=== PATIENT | female | born 1970 | race Caucasian/White ===

== ENCOUNTER 2016-06-23 13:22 | Inpatient (IN) | payer OTHER ==
[~2016-06-23] VITALS: Ht 167.6 cm; Wt 99.7 kg
--- NOTE | 2016-06-23 17:13 | DIAGNOSTIC IMAGING REPORT ---
PROCEDURE: CT ABD/PELVIS WITH CONTRAST CLINICAL INDICATION: Right-sided pain, initial encounter TECHNIQUE: 98 ml of Isovue 300 were injected intravenously and axial images were obtained of the entire abdomen and pelvis with sagittal and coronal reformations. COMPARISON: None. FINDINGS: ABDOMEN: Mild left basilar atelectasis. Heart size is normal. Liver, gallbladder, pancreas, spleen, adrenal glands and kidneys are normal . Normal abdominal aorta. I PELVIS: Enlarged appendix (10 mm), with minor adjacent inflammatory changes. There is also a 1.7 cm inflammatory cystic mass lateral to the cecum with a wispy fluid collection extending from the appendix suggestive of a developing abscess. There are several fibroids, largest 4.8 cm. Adnexa and bladder are unremarkable. No free fluid. No suspicious osseous lesions. IMPRESSION: 1. Acute appendicitis. There is a 1.7 cm inflammatory mass lateral to the cecum with a wispy connection from the appendix suggestive of a developing abscess 2. Results discussed with Dr. Roberson All CT scans at this facility use dose modulation, iterative reconstruction, and/or weight-based dosing when appropriate to reduce radiation dose to as low as reasonably achievable.
--- NOTE | 2016-06-23 17:21 | ED NURSING NOTES ---
Clinical Report - Nurses [facility] [address] [place] [address] 06/23/2016 13:27 Patient: VICENTA LEWIS TRIAGE Triage time 13:50 Jun 23 2016. Acuity: LEVEL 3. Chief Complaint: ABDOMINAL PAIN. Alert. No acute distress. --13:59 Nuria Llanos R.N. 13:50 06/23/16. BP: 177/82. HR: 66. RR: 18. O2 saturation: 100%. Temp: 98.2 F. Pain level now 01/29. --13:59 Nuria Llanos R.N. Weight: 99.5 kg measured. Height/Length: 65 inches Estimated. BMI: 36.5. --13:50 Nuria Llanos R.N. Medications None. --13:54 Nuria Llanos R.N. Medication/allergy information source: the patient. --13:59 Nuria Llanos R.N. Allergies None. --13:54 Nuria Llanos R.N. History Primary physician (none). ( Pain on the Right Side, radiates around to the back. Comes and goes. 01/29. Pain since . Taking Ibuprofen PRN. Denies N/V/D.). The patient has had abdominal pain. No nausea, vomiting or fever. 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 PAST MEDICAL HX: No history of diabetes mellitus. Immunizations: seasonal influenza. Denies current . SURGERY HX: No history of previous surgery. SOCIAL HX: Never smoker. No alcohol use or drug use. No recent travel. No infectious disease exposure. FALL RISK ASSESSMENT: Fall risk assessment completed. No fall risk identified. NUTRITIONAL RISK ASSESSMENT: The nutritional risk assessment revealed no deficiencies. FUNCTIONAL ASSESSMENT: Functional assessment: no impairments noted. LEARNING NEEDS ASSESSMENT: The learning needs assessment revealed no barriers. SKIN INTEGRITY ASSESSMENT: Skin integrity risk assessment completed. No skin integrity risk identified. --13:59 Nuria Llanos R.N. ADDITIONAL SURGERIES: no known surgeries. Interventions ID band on patient. To room. --13:59 Nuria Llanos R.N. PHYSICAL ASSESSMENT Ambulatory to room. GENERAL / NEURO / PSYCH: Oriented X 4. Appears in no acute distress. SKIN: Skin is warm and dry. --14:00 Nuria Llanos R.N. NURSING PROGRESS NOTES ( attempting a urine sample.). --13:59 Nuria Llanos R.N. ( Ivorian speaking, son is interpreting.). --14:00 Nuria Llanos R.N. Clean catch urine collected with return of yellow-colored clear urine; sample sent to lab for urinalysis. Specimen labeled in the presence of the patient. --14:05 Nuria Llanos R.N. 15:27 06/23/2016 Site #1 started via IV in the right wrist with an 18g angiocath; one attempt. Blood drawn: rainbow set. --15:27 Roberto Alatorre R.N. 15:27 06/23/2016 Started bag #1 1000 mL IV Fluids IV NS (Saline); at 1000 mL/hr over 2 hour(s) via site #1. Allergies verified and confirmed 5 rights. IV patency established. IV site checked: no pain, redness, or swelling. IV flushed thoroughly pre- and post-medication administration. --15:27 Roberto Alatorre R.N. 15:38 06/23/2016 Dilaudid (HYDROmorphone HCl PF) IVP 0.5 mg given over 2 minute(s) via site #1. Allergies verified, confirmed 5 rights and sedative warning given to the patient. IV patency established. IV site checked: no pain, redness, or swelling. IV flushed thoroughly pre- and post-medication administration. IVP given by RN. --15:38 Roberto Alatorre R.N. 15:38 06/23/2016 Zofran (Ondansetron HCl) IVP 4 mg given over 2 minute(s) via site #1. Allergies verified and confirmed 5 rights. IV patency established. IV site checked: no pain, redness, or swelling. IV flushed thoroughly pre- and post-medication administration. IVP given by RN. --15:38 Landry, Roberto, R.N. 17:19 06/23/2016 IV Fluids IV NS Discontinued: bag #1 infused. Total amount infused: 1000 mL. IV patency established. IV site checked: no pain, redness, or swelling. IV flushed thoroughly. --17:19 Roberto Alatorre R.N. 17:22 06/23/16. BP: 135/78. HR: 78. RR: 16. O2 saturation: 100%. --17:24 Roberto Alatorre R.N. Reassessment after fluids administered. She is calm. ( Assisted patient to the restroom. Patient able to ambulate with an even and steady gait.). --17:24 Roberto Alatorre R.N. 17:35 06/23/2016 Started bag #1 1000 mL IV Fluids IV NS (Saline); over 2 hour(s) via site #1 via IV pump. Allergies verified and confirmed 5 rights. IV patency established. IV site checked: no pain, redness, or swelling. IV flushed thoroughly pre- and post-medication administration. --17:36 Roberto Alatorre R.N. 18:26 06/23/2016 Ertapenem IVP 1 gm given over 30 minute(s) via site #1. Allergies verified and confirmed 5 rights. IV patency established. IV site checked: no pain, redness, or swelling. IV flushed thoroughly pre- and post-medication administration. IVP given by RN. --18:26 Roberto Alatorre R.N. The patient is calm and resting quietly. Overall patient status is improved. GI / : Abdomen soft and nontender. Bowel sounds within normal limits. SKIN: Skin is warm and dry. Skin color within normal limits. --18:26 Roberto Alatorre R.N. 18:26 06/23/16. BP: 138/76. HR: 74. RR: 16. O2 saturation: 99%. Pain level now: 0/10. --18:26 Roberto Alatorre R.N. Patient transported by stretcher with nurse. (patient to be transported to surgery at 1836 PM). --18:37 Roberto Alatorre R.N. 18:36 06/23/16. BP: 138/76. HR: 73. RR: 16. O2 saturation: 100%. Temp: 98.2 F. Pain level now 08/01. --18:37 Roberto Alatorre R.N. DISPOSITION / DISCHARGE Condition at departure: improved. The goals identified in the patient's plan of care were met. No learning barriers present. Discharge instructions provided and reviewed with the patient. Reviewed medication(s) side effects, precautions, dosing and course information. Reviewed fever care instructions. Patient verbalized understanding. Written instructions provided in Macedonian. The patient was discharged home and accompanied by spouse. She left the Emergency Department ambulatory and via private vehicle. Spouse driving. FALL RISK ASSESSMENT: Fall risk assessment completed. No fall risk identified. --17:51 Roberto Alatorre R.N. Departure time: 1751 PM. --17:51 Roberto Alatorre R.N. Locked/Released at 06/26/2016 19:42 by Roberto Alatorre R.N.
--- NOTE | 2016-06-23 17:21 | ED CLINICAL REPORT ---
Clinical Report - Physicians/Mid Levels [facility] [address] [place] [address] 06/23/2016 13:27 Patient: VICENTA LEWIS Time Seen: 14:59. Arrived- By private vehicle. Historian- patient. HISTORY OF PRESENT ILLNESS Chief Complaint: ABDOMINAL PAIN. At its maximum, severity described as moderate. When seen in the E.D., severity described as moderate. Modifying factors- worsened by movement. It is described as "pain" and it is described as located in the right flank and the right upper quadrant. This started at 5 days ago; Pts adult son serves as kitchen supervisor. His technique is excellent. and is still present. It was gradual in onset and has been constant. No nausea or vomiting. Similar symptoms previously: ( 2 months ago -). Recent medical care: Not recently seen/assessed. REVIEW OF SYSTEMS Last normal menstrual period- Jun 02. No difficulty with urination, pain with urination, fever, headache or sore throat. No chest pain, difficulty breathing, cough, joint pain or skin rash. No chills or back pain. Last bowel movement: yesterday. All systems otherwise negative, except as recorded above. PAST HISTORY PCP: None Ops: None Hosp: None Illness: None. SOCIAL HISTORY Never smoker. ADDITIONAL NOTES The nursing notes have been reviewed. PHYSICAL EXAM Appearance: Alert. No acute distress. Eyes: Eyes normal inspection. ENT: Pharynx normal. CVS: Normal heart rate and rhythm. Heart sounds normal. Respiratory: No respiratory distress. Breath sounds normal. Abdomen: Moderate tenderness in the right lower quadrant. Guarding present in the right lower quadrant (trace). Bowel sounds normal. No mass. No rebound tenderness. (No inguinal hernias). Back: No CVA tenderness. Skin: Skin warm. Normal skin color. Extremities: Extremities exhibit normal ROM. No lower extremity edema. Neuro: No alteration in mental status. LABS, X-RAYS, AND EKG Abdominal CT: PROCEDURE: CT ABD/PELVIS WITH CONTRAST CLINICAL INDICATION: Right-sided pain, initial encounter TECHNIQUE: 98 ml of Isovue 300 were injected intravenously and axial images were obtained of the entire abdomen and pelvis with sagittal and coronal reformations. COMPARISON: None. FINDINGS: ABDOMEN: Mild left basilar atelectasis. Heart size is normal. Liver, gallbladder, pancreas, spleen, adrenal glands and kidneys are normal . Normal abdominal aorta. I PELVIS: Enlarged appendix (10 mm), with minor adjacent inflammatory changes. There is also a 1.7 cm inflammatory cystic mass lateral to the cecum with a wispy fluid collection extending from the appendix suggestive of a developing abscess. There are several fibroids, largest 4.8 cm. Adnexa and bladder are unremarkable. No free fluid. No suspicious osseous lesions. IMPRESSION: 1. Acute appendicitis. There is a 1.7 cm inflammatory mass lateral to the cecum with a wispy connection from the appendix suggestive of a developing abscess 2. Results discussed with Dr. Roberson All CT scans at this facility use dose modulation, iterative reconstruction, and/or weight-based dosing when appropriate to reduce radiation dose to as low as reasonably achievable. Electronically Final signed by:Giancarlo Booker MD 06/23/2016 5:13:09 PM. Laboratory Tests: UA-Culture if indicated: (SELIN: 06/23/2016 14:00) ( MsgRcvd 06/23/2016 14:21) Final results Test Result Flag Units (Reference) URINE COLOR LIGHT YELLOW URINE APPEARANCE CLEAR URINE GLUCOSE NEGATIVE (NEGATIVE) URINE BILIRUBIN NEGATIVE (NEGATIVE) URINE KETONE NEGATIVE (NEGATIVE) URINE SPECIFIC GRAVITY 1.010 (1.010-1.030) URINE PH 6.5 (5.0-8.0) URINE PROTEIN NEGATIVE (NEGATIVE) URINE UROBILINOGEN 0.2 EU/dL (0.2-1.0) URINE NITRITE NEGATIVE (NEGATIVE) URINE BLOOD NEGATIVE (NEGATIVE) URINE LEUK ESTERASE NEGATIVE (NEGATIVE) URINE RBC RARE rbc/hpf (0-1) URINE WBC 0-1 wbc/hpf (0-1) URINE EPITHELIAL CELLS 5-10 EPI/hpf (0-5) URINE BACTERIA TRACE (<1+) (NONE SEEN) URINE COMMENT CULT NOT INDICATED URINE CULTURES ARE SET-UP BASED ON THE FOLLOWING CRITERIA:POSITIVE NITRITEPOSITIVE LEUKOCYTE ESTERASEGREATER THAN 10 WHITE BLOOD CELLSMODERATE (2+) OR GREATER BACTERIA Urine: (SELIN: 06/23/2016 14:00) ( [facility] 06/23/2016 15:21) Final results Test Result Flag Units (Reference) URINE NEGATIVE Hgb/Hct: (SELIN: 06/23/2016 20:30) ( [facility] 06/23/2016 20:38) Final results Test Result Flag Units (Reference) HEMOGLOBIN 7.0 L gm/dL (12.0-16.0) HEMATOCRIT 24.4 L % (36.0-46.0) CBC w Diff: (SELIN: 06/23/2016 15:24) ( [facility] 06/23/2016 16:08) Final results Test Result Flag Units (Reference) WHITE BLOOD COUNT 9.0 K/uL (4.5-11.5) RED BLOOD COUNT 4.54 M/uL (4.00-5.20) HEMOGLOBIN 7.2 L gm/dL (12.0-16.0) HEMATOCRIT 25.1 L % (36.0-46.0) MEAN CELL VOLUME 55 L fL (80-100) MEAN CORPUSCULAR HGB 16 L pg (26-34) MEAN CORPUSCULAR HGB CONC 29 L g/dL (31-37) RED CELL DISTRIBUTION WIDTH 22.2 H % (11.6-14.8) PLATELET COUNT 422 H K/uL (150-400) NEUTROPHIL % 58.1 % (50-75) LYMPH % 28.5 % (25-40) MONO % 11.7 % (3-14) EOSINOPHIL % 1.1 % (0-4) BASOPHIL % 0.6 % (0-2) RBC MORPHOLOGY 3+ MICROCYTOSIS~~2+ ANISOCYTOSIS~~1+ HYPOCHROMASIA CMP: (SELIN: 06/23/2016 15:24) ( [facility] 06/23/2016 15:53) Final results Test Result Flag Units (Reference) GLUCOSE 72 mg/dL (70-110) BUN 9 mg/dL (7-18) CREATININE 0.5 L mg/dL (0.6-1.3) Estimated GFR >60 mL/min Estimated GFR- >60 mL/min Note: Persistent reduction over 3 months in eGFR<60 mL/min/1.73 m2 defines CKD. Patients with eGFR values>=60 mL/min/1.73 m2 may also have CKD if evidence ofpersistent proteinuria. Additional information may be foundat www.kidney.org. SODIUM 140 mmol/L (136-145) POTASSIUM 3.6 mmol/L (3.5-5.1) CHLORIDE 104 mmol/L (98-107) CARBON DIOXIDE 28 mmol/L (21-32) CALCIUM 8.0 L mg/dL (8.5-10.1) TOTAL PROTEIN 7.2 g/dL (6.4-8.2) ALBUMIN 3.2 L g/dL (3.3-5.0) BILIRUBIN, TOTAL 0.4 mg/dL (0.0-1.0) ALKALINE PHOSPHATASE 73 U/L (46-116) AST (SGOT) 20 U/L (15-37) ALT (SGPT) 29 U/L (12-78) LIPASE 103 U/L (73-393) Type & Cross: (SELIN: 06/23/2016 18:50) ( MsgRcvd 06/23/2016 19:23) IP Test Result Flag Units (Reference) PATIENT BLOOD TYPE O Positive Above is a corrected result. Previously reported on ( MsgRcvd 06/23/2016 19:11) as: PATIENT BLOOD TYPE O Positive ANTIBODY SCREEN NEGATIVE LEUKOREDUCED PACKED CELLS [id number] OP PC XM COMPATIBLE [id number] OP PC XM COMPATIBLE . PROGRESS AND PROCEDURES Course of Care: 16:21 06/23/16. Labs - anemia I spoke to Dr Neely. He came to the ED to examine the patient. He has written his usual admit orders. I have done the briefest portion of the Archiver's orders. Antibiotics are ordered at his request. CLINICAL IMPRESSION ACUTE ABDOMINAL PAIN ACUTE APPENDICITIS WITH ABSCESS ANEMIA. (Electronically signed by Hector Roberson MD 06/23/2016 23:39)
--- NOTE | 2016-06-23 17:21 | ED CLINICAL REPORT ---
Clinical Report - Physicians/Mid Levels [facility] [address] [place] [address] 06/23/2016 13:27 Patient: VICENTA LEWIS Time Seen: 14:59. Arrived- By private vehicle. Historian- patient. HISTORY OF PRESENT ILLNESS Chief Complaint: ABDOMINAL PAIN. At its maximum, severity described as moderate. When seen in the E.D., severity described as moderate. Modifying factors- worsened by movement. It is described as "pain" and it is described as located in the right flank and the right upper quadrant. This started at 5 days ago; Pts adult son serves as structural test engineer. His technique is excellent. and is still present. It was gradual in onset and has been constant. No nausea or vomiting. Similar symptoms previously: ( 2 months ago -). Recent medical care: Not recently seen/assessed. REVIEW OF SYSTEMS Last normal menstrual period- Jun 02. No difficulty with urination, pain with urination, fever, headache or sore throat. No chest pain, difficulty breathing, cough, joint pain or skin rash. No chills or back pain. Last bowel movement: yesterday. All systems otherwise negative, except as recorded above. PAST HISTORY PCP: None Ops: None Hosp: None Illness: None. SOCIAL HISTORY Never smoker. ADDITIONAL NOTES The nursing notes have been reviewed. PHYSICAL EXAM Appearance: Alert. No acute distress. Eyes: Eyes normal inspection. ENT: Pharynx normal. CVS: Normal heart rate and rhythm. Heart sounds normal. Respiratory: No respiratory distress. Breath sounds normal. Abdomen: Moderate tenderness in the right lower quadrant. Guarding present in the right lower quadrant (trace). Bowel sounds normal. No mass. No rebound tenderness. (No inguinal hernias). Back: No CVA tenderness. Skin: Skin warm. Normal skin color. Extremities: Extremities exhibit normal ROM. No lower extremity edema. Neuro: No alteration in mental status. LABS, X-RAYS, AND EKG Abdominal CT: PROCEDURE: CT ABD/PELVIS WITH CONTRAST CLINICAL INDICATION: Right-sided pain, initial encounter TECHNIQUE: 98 ml of Isovue 300 were injected intravenously and axial images were obtained of the entire abdomen and pelvis with sagittal and coronal reformations. COMPARISON: None. FINDINGS: ABDOMEN: Mild left basilar atelectasis. Heart size is normal. Liver, gallbladder, pancreas, spleen, adrenal glands and kidneys are normal . Normal abdominal aorta. I PELVIS: Enlarged appendix (10 mm), with minor adjacent inflammatory changes. There is also a 1.7 cm inflammatory cystic mass lateral to the cecum with a wispy fluid collection extending from the appendix suggestive of a developing abscess. There are several fibroids, largest 4.8 cm. Adnexa and bladder are unremarkable. No free fluid. No suspicious osseous lesions. IMPRESSION: 1. Acute appendicitis. There is a 1.7 cm inflammatory mass lateral to the cecum with a wispy connection from the appendix suggestive of a developing abscess 2. Results discussed with Dr. Roberson All CT scans at this facility use dose modulation, iterative reconstruction, and/or weight-based dosing when appropriate to reduce radiation dose to as low as reasonably achievable. Electronically Final signed by:Giancarlo Booker MD 06/23/2016 5:13:09 PM. Laboratory Tests: UA-Culture if indicated: (SELIN: 06/23/2016 14:00) ( MsgRcvd 06/23/2016 14:21) Final results Test Result Flag Units (Reference) URINE COLOR LIGHT YELLOW URINE APPEARANCE CLEAR URINE GLUCOSE NEGATIVE (NEGATIVE) URINE BILIRUBIN NEGATIVE (NEGATIVE) URINE KETONE NEGATIVE (NEGATIVE) URINE SPECIFIC GRAVITY 1.010 (1.010-1.030) URINE PH 6.5 (5.0-8.0) URINE PROTEIN NEGATIVE (NEGATIVE) URINE UROBILINOGEN 0.2 EU/dL (0.2-1.0) URINE NITRITE NEGATIVE (NEGATIVE) URINE BLOOD NEGATIVE (NEGATIVE) URINE LEUK ESTERASE NEGATIVE (NEGATIVE) URINE RBC RARE rbc/hpf (0-1) URINE WBC 0-1 wbc/hpf (0-1) URINE EPITHELIAL CELLS 5-10 EPI/hpf (0-5) URINE BACTERIA TRACE (<1+) (NONE SEEN) URINE COMMENT CULT NOT INDICATED URINE CULTURES ARE SET-UP BASED ON THE FOLLOWING CRITERIA:POSITIVE NITRITEPOSITIVE LEUKOCYTE ESTERASEGREATER THAN 10 WHITE BLOOD CELLSMODERATE (2+) OR GREATER BACTERIA Urine: (SELIN: 06/23/2016 14:00) ( [facility] 06/23/2016 15:21) Final results Test Result Flag Units (Reference) URINE NEGATIVE Hgb/Hct: (SELIN: 06/23/2016 20:30) ( [facility] 06/23/2016 20:38) Final results Test Result Flag Units (Reference) HEMOGLOBIN 7.0 L gm/dL (12.0-16.0) HEMATOCRIT 24.4 L % (36.0-46.0) CBC w Diff: (SELIN: 06/23/2016 15:24) ( [facility] 06/23/2016 16:08) Final results Test Result Flag Units (Reference) WHITE BLOOD COUNT 9.0 K/uL (4.5-11.5) RED BLOOD COUNT 4.54 M/uL (4.00-5.20) HEMOGLOBIN 7.2 L gm/dL (12.0-16.0) HEMATOCRIT 25.1 L % (36.0-46.0) MEAN CELL VOLUME 55 L fL (80-100) MEAN CORPUSCULAR HGB 16 L pg (26-34) MEAN CORPUSCULAR HGB CONC 29 L g/dL (31-37) RED CELL DISTRIBUTION WIDTH 22.2 H % (11.6-14.8) PLATELET COUNT 422 H K/uL (150-400) NEUTROPHIL % 58.1 % (50-75) LYMPH % 28.5 % (25-40) MONO % 11.7 % (3-14) EOSINOPHIL % 1.1 % (0-4) BASOPHIL % 0.6 % (0-2) RBC MORPHOLOGY 3+ MICROCYTOSIS~~2+ ANISOCYTOSIS~~1+ HYPOCHROMASIA CMP: (SELIN: 06/23/2016 15:24) ( [facility] 06/23/2016 15:53) Final results Test Result Flag Units (Reference) GLUCOSE 72 mg/dL (70-110) BUN 9 mg/dL (7-18) CREATININE 0.5 L mg/dL (0.6-1.3) Estimated GFR >60 mL/min Estimated GFR- >60 mL/min Note: Persistent reduction over 3 months in eGFR<60 mL/min/1.73 m2 defines CKD. Patients with eGFR values>=60 mL/min/1.73 m2 may also have CKD if evidence ofpersistent proteinuria. Additional information may be foundat www.kidney.org. SODIUM 140 mmol/L (136-145) POTASSIUM 3.6 mmol/L (3.5-5.1) CHLORIDE 104 mmol/L (98-107) CARBON DIOXIDE 28 mmol/L (21-32) CALCIUM 8.0 L mg/dL (8.5-10.1) TOTAL PROTEIN 7.2 g/dL (6.4-8.2) ALBUMIN 3.2 L g/dL (3.3-5.0) BILIRUBIN, TOTAL 0.4 mg/dL (0.0-1.0) ALKALINE PHOSPHATASE 73 U/L (46-116) AST (SGOT) 20 U/L (15-37) ALT (SGPT) 29 U/L (12-78) LIPASE 103 U/L (73-393) Type & Cross: (SELIN: 06/23/2016 18:50) ( MsgRcvd 06/23/2016 19:23) IP Test Result Flag Units (Reference) PATIENT BLOOD TYPE O Positive Above is a corrected result. Previously reported on ( MsgRcvd 06/23/2016 19:11) as: PATIENT BLOOD TYPE O Positive ANTIBODY SCREEN NEGATIVE LEUKOREDUCED PACKED CELLS [id number] OP PC XM COMPATIBLE [id number] OP PC XM COMPATIBLE . PROGRESS AND PROCEDURES Course of Care: 16:21 06/23/16. Labs - anemia I spoke to Dr Neely. He came to the ED to examine the patient. He has written his usual admit orders. I have done the briefest portion of the OneBuckResume orders. Antibiotics are ordered at his request. CLINICAL IMPRESSION ACUTE ABDOMINAL PAIN ACUTE APPENDICITIS WITH ABSCESS ANEMIA. (Electronically signed by Hector Roberson MD 06/23/2016 23:39)
--- NOTE | 2016-06-23 17:22 | ED ORDER SUMMARY ---
..... Patient: VICENTA LEWIS OrderSheet [facility] VisitID: [id number] [place] [address] 46y, F Registration Date/Time: 06/23/2016 ORDER SHEET Weight: 99.5 kg (measured) Allergies: None GENERAL ORDERS: UA-Culture if indicated Urgent (14:00 06/23/2016 SBalde R.N. per protocol) (Ack 14:09 IJurca ER Tech1) (Sent 14:20 IJurca ER Tech1) (15:15 HOShaughnessy R.N.) CBC w Diff Urgent (15:06 06/23/2016 Radha ORTEGA) (Ack 15:07 IJurca ER Tech1) (15:15 HOShaughnessy R.N.) CMP Urgent (15:06 06/23/2016 Radha ORTEGA) (Ack 15:07 IJurca ER Tech1) (15:15 HOShaughnessy R.N.) Lipase Urgent (15:06 06/23/2016 Radha ORTEGA) (Ack 15:07 IJurca ER Tech1) (15:15 HOShaughnessy R.N.) Urine Urgent (15:06 06/23/2016 Radha ORTEGA) (Ack 15:07 IJurca ER Tech1) (15:15 HOShaughnessy R.N.) CT Abd/Pel w Cont (No) (pending) (when labs available. ) Urgent (15:14 06/23/2016 Radha ORTEGA) (Ack 15:15 IJurca ER Tech1) (15:27 HOShaughnessy R.N.) Type & Screen Urgent (18:29 06/23/2016 HOShaughnessy R.N. verbal order read back to Navjot ORTEGA) (Ack 18:32 IJurca ER Tech1) MEDICATION ORDERS: IV FLUIDS: IV NS : initial bolus none -, then 500 mL/hr for 2h (NOW); Urgent (15:05 06/23/2016 Radha ORTEGA) (15:27 HOShaughnessy R.N.) Dilaudid IV 0.5 mg (NOW) (15:13 06/23/2016 Radha ORTEGA) (15:38 Torin ChanNThomas) Zofran IV 4 mg (NOW) (15:14 06/23/2016 Radha ORTEGA) (15:38 Torin Eric.N.) IV NS : initial bolus none -, then 500 mL/hr for 2h (NOW); Urgent (17:16 06/23/2016 Radha ORTEGA) (17:36 Torin Eric.N.) Ertapenem IV 1 gm (NOW) (17:33 06/23/2016 Radha ORTEGA) (18:26 Torin Eric.Felipe) ORDER SHEET NOTES: [Electronically signed by Hector Roberson MD (23:39 06/23/2016)] [Electronically signed by Roberto Alatorre R.N. (19:42 06/26/2016)] [Electronically locked/signed by Roberto Alatorre R.N. (19:42 06/26/2016)]
--- NOTE | 2016-06-23 17:22 | ED ORDER SUMMARY ---
..... Patient: VICENTA LEWIS OrderSheet [facility] VisitID: [id number] [place] [address] 46y, F Registration Date/Time: 06/23/2016 ORDER SHEET Weight: 99.5 kg (measured) Allergies: None GENERAL ORDERS: UA-Culture if indicated Urgent (14:00 06/23/2016 SBalde R.N. per protocol) (Ack 14:09 IJurca ER Tech1) (Sent 14:20 IJurca ER Tech1) (15:15 HOShaughnessy R.N.) CBC w Diff Urgent (15:06 06/23/2016 Radha ORTEGA) (Ack 15:07 IJurca ER Tech1) (15:15 HOShaughnessy R.N.) CMP Urgent (15:06 06/23/2016 Radha ORTEGA) (Ack 15:07 IJurca ER Tech1) (15:15 HOShaughnessy R.N.) Lipase Urgent (15:06 06/23/2016 Radha ORTEGA) (Ack 15:07 IJurca ER Tech1) (15:15 HOShaughnessy R.N.) Urine Urgent (15:06 06/23/2016 Radha ORTEGA) (Ack 15:07 IJurca ER Tech1) (15:15 HOShaughnessy R.N.) CT Abd/Pel w Cont (No) (pending) (when labs available. ) Urgent (15:14 06/23/2016 Radha ORTEGA) (Ack 15:15 IJurca ER Tech1) (15:27 HOShaughnessy R.N.) Type & Screen Urgent (18:29 06/23/2016 HOShaughnessy R.N. verbal order read back to Navjot ORTEGA) (Ack 18:32 IJurca ER Tech1) MEDICATION ORDERS: IV FLUIDS: IV NS : initial bolus none -, then 500 mL/hr for 2h (NOW); Urgent (15:05 06/23/2016 Radha ORTEGA) (15:27 HOShaughnessy R.N.) Dilaudid IV 0.5 mg (NOW) (15:13 06/23/2016 Radha ORTEGA) (15:38 Torin ChanNThomas) Zofran IV 4 mg (NOW) (15:14 06/23/2016 Radha ORTEGA) (15:38 Torin Eric.N.) IV NS : initial bolus none -, then 500 mL/hr for 2h (NOW); Urgent (17:16 06/23/2016 Radha ORTEGA) (17:36 Torin Eric.N.) Ertapenem IV 1 gm (NOW) (17:33 06/23/2016 Radha ORTEGA) (18:26 Torin Eric.Felipe) ORDER SHEET NOTES: [Electronically signed by Hector Roberson MD (23:39 06/23/2016)] [Electronically signed by Roberto Alatorre R.N. (19:42 06/26/2016)] [Electronically locked/signed by Roberto Alatorre R.N. (19:42 06/26/2016)]
--- NOTE | 2016-06-23 19:48 | CONSULTATION REPORT ---
DATE OF CONSULTATION: 06/23/2016 CHIEF COMPLAINT: 1. Abdominal pain HISTORY OF PRESENT ILLNESS: A 46-year-old non-Algerian speaking female from [place], with no family physician of record, who presented to the emergency department with a 5-day history of progressive abdominal pain, localizing to the right mid lower abdomen , not associated with nausea, vomiting, fever or chills. No diarrhea, no dysuria, no hematuria. In the emergency department, her white count was noted to be 9000. She was scheduled for a CAT scan of her abdomen, which was interpreted by Dr. Booker as acute appendicitis with possible localized abscess. MEDICAL/SURGICAL HISTORY: Past medical/surgical history: Significant for a C- section. MEDICATIONS: 1. None. ALLERGIES: 1. NONE. SOCIAL HISTORY: She is . She has 3 sons, 2 daughters, 1 daughter at . The patient does not drink alcohol, does not smoke. Drinks 1 cup of coffee a day. Does not use recreational drugs. She is a housewife. FAMILY HISTORY: Mother age 68, etiology unclear. Father is age 78, in good health. The patient has 4 brothers, 3 sisters that are alive and well. REVIEW OF SYSTEMS: She is AB 0. Menarche at age 16. First full-term age 17. Last menstrual period 06/02/2016. She denies any history of hepatitis, jaundice, rheumatic fever, blood transfusion, heart murmurs requiring antibiotics or bleeding tendencies. Remaining 12-point review of systems is negative. PHYSICAL EXAMINATION: VITAL SIGNS: Blood pressure 177/82, pulse 66, respiratory rate is 18, temperature is 98.2, BMI 36. HEENT: Normocephalic, atraumatic. Pupils equal and reactive. No scleral icterus. External auditory canals clear. No nasal septal defect or discharge. Moist mucous membranes. Throat not injected. NECK: Supple. No JVD, carotid bruit or adenopathy. LUNGS: Clear. No rales, rhonchi, wheezing. No CVA tenderness. HEART: Regular. No murmurs. ABDOMEN: Nondistended. Hypoactive bowel sounds. The patient is tender below the costal margin and the iliac crest to palpation. She has localized guarding, no masses appreciable. EXTREMITIES: Full range of motion, active passively. No pretibial or ankle edema. SKIN: Warm and dry with no peripheral cyanosis. NEUROLOGIC: The patient is grossly intact with no focal motor neurological deficits. LYMPHATICS: No cervical, supraclavicular, axillary, or groin adenopathy. LAB/IMAGING: Laboratory values: White count 9.0, hemoglobin, hematocrit 7.2 and 25.1, respectively, platelet count 422,000. Sodium 140, potassium 3.6, chloride 104, bicarb 28, glucose 72, BUN 9, creatinine 0.5. Liver function studies within normal limits. Total bilirubin 0.4, alkaline phosphatase 73, lipase 103. IMPRESSION: 1. Acute appendicitis. 2. Anemia, unknown etiology. PLAN: Laparoscopic appendectomy. The procedure has been explained to the patient including potential risks of bleeding, conversion to open procedure, retained localized abscess at a later date, damage to local structures. The patient understands and agrees to proceed. At this point, all questions answered to satisfaction. We will schedule her emergently.
--- NOTE | 2016-06-23 20:44 | OPERATIVE REPORT ---
DATE OF SURGERY: 06/23/2016 SURGEON: Camilla Neely III, MD INSIDE ACCOUNT EXECUTIVE: None. PREOPERATIVE DIAGNOSIS: 1. Acute appendicitis, possible localized abscess POSTOPERATIVE DIAGNOSIS: 1. Acute appendicitis PROCEDURE PERFORMED: 1. Laparoscopic appendectomy ANESTHESIA: General endotracheal. PATHOLOGY SPECIMEN: Appendix. INDICATIONS: A 46-year-old female with a 5-day history of progressive right lower quadrant abdominal pain, [address]: Acute appendicitis with questionable abscess attaching to appendix. SURGICAL FINDINGS: A thickened appendix. No evidence of abscess. Uterus fibroid. SURGICAL TECHNIQUE: The patient was brought to the operating room and placed in the dorsal supine position where she underwent general endotracheal anesthesia by the anesthesiology department. After proper anesthesia had taken effect, the patient 's abdomen was prepped using Betadine and draped in a sterile fashion. A supraumbilical incision was made and carried down through skin and subcutaneous tissue. A Veress needle was inserted through this site into the abdominal cavity. After ascertaining its appropriate location with suction and irrigation, pneumoperitoneum obtained using CO2 insufflation to approximately 14-15 mmHg pressure. Once this pressure was reached, the Veress needle was removed and replaced with a 10 mm trocar. The trocar was removed, leaving the sleeve behind, through which a laparoscopic video camera was introduced into the abdominal cavity. Under direct visualization, a separate 5 mm trocar was placed in the suprapubic region. Another 10 mm trocar was placed in the left lower quadrant. Each entered the abdominal cavity under direct visualization. The trocars were removed, leaving the sleeves behind, through which laparoscopic video instrumentation was introduced into the abdominal cavity. Under direct visualization, we were able to identify the cecum and appendix with the aforementioned findings noted. The mesoappendix was taken down using the Thunderbeat. The base of the appendix was clipped in continuity using the Hem-o-loks. Once in position, the appendix was transected between the Hem-o-loks using the Endo Gustavo. The appendix, having been transected, was placed in a sterile specimen container bag and removed from the abdominal cavity and sent to pathology. Appendiceal stump mucosa was cauterized using the Thunderbeat. Our attention was then turned to the area in question of the abscess. This area was explored. No abscess cavity was identified. The cecum appeared grossly normal, as did the terminal ileum. Both ovaries were appropriate for age and gestation. The patient had a large uterine fibroid. Approximately 30 mL of 0.5% Marcaine with epinephrine was sprayed over the right and left domes of the liver for postoperative analgesia, the pneumoperitoneum released, and all trocars were removed from the abdominal cavity. All trocar sites were approximated using 4-0 subdermal Polysorb and Steri-Strips. A sterile pressure occlusive dressing was placed over each site. The patient tolerated the procedure well, was extubated, and transferred to the recovery room in stable condition. There were no intraoperative or anesthetic complications.
[2016-06-23 21:08] VITALS: BP 152/87
[2016-06-23 21:22] VITALS: BP 153/88
[2016-06-23 21:40] VITALS: BP 136/82
[2016-06-23 21:58] VITALS: BP 155/89
[2016-06-23 22:38] VITALS: BP 132/74
[2016-06-23 23:25] VITALS: BP 135/71
[2016-06-24 02:12] VITALS: BP 130/73
[2016-06-24 06:19] VITALS: BP 121/66
[2016-06-24] MEDS ORDERED: HYCET1 ML PO (06:58)
--- NOTE | 2016-06-24 06:59 | Provider's Discharge Care Plan ---
Problem, Goal, Plan Problem List 1. S/P LAP APPY Goals: Improve disease control, Therapeutic intervention Instructions: Follow up as directed, Take meds as directed
--- NOTE | 2016-06-24 06:59 | Provider's Discharge Care Plan ---
Problem, Goal, Plan Problem List 1. S/P LAP APPY Goals: Improve disease control, Therapeutic intervention Instructions: Follow up as directed, Take meds as directed
--- NOTE | 2016-06-26 19:42 | ED MED RECONCILIATION SUMMARY ---
Patient: VICENTA LEWIS Medication Reconciliation Report [facility] VisitID: [id number] [address] [place] [address] 46y, F Registration Date/Time: 06/23/2016 Weight: 99.5 kg Height/Length: 65 in. BMI: 36.5 ALLERGIES: None The patient's Home Medications are listed below: NONE. The source(s) of the original Home Medication information: patient The following Medications were given to the patient in the Emergency Department: IV NS IV Fluids bolus 0, then 1000 mL/hr, administered: 06/23/2016 3:27:00 PM Dilaudid [IVP] IVP 0.5 mg, administered: 06/23/2016 3:38:00 PM Zofran [IVP] IVP 4 mg, administered: 06/23/2016 3:38:00 PM IV NS IV Fluids bolus 0, administered: 06/23/2016 5:35:00 PM Ertapenem [IVP] IVP 1 gm, administered: 06/23/2016 6:26:00 PM The following Medications were prescribed to the patient: None.
--- NOTE | 2016-06-26 19:42 | ED MAR SUMMARY ---
..... Medication Administration Record [facility] [address] [place] [address] Patient: VICENTA LEWIS Visit ID: [id number] 46y, F Weight: 99.5 kg Height/Length: 65 in BMI: 36.5 ALLERGIES: None Start 15:27 06/23/2016 Roberto Alatorre R.N., Stop 17:19 06/23/2016 Roberto Alatorre R.N. Medication Administered: IV NS (SALINE), Dose: IV Fluids over 2 hour(s), Rate: 1000 mL/hr, Dispensed: 1000 mL bag, Site: #1 right wrist. Medication Ordered: IV NS : initial bolus none -, then 500 mL/hr for 2h (NOW); Urgent. Given 15:38 06/23/2016 Roberto Alatorre R.N. Medication Administered: DILAUDID [IVP] (HYDROMORPHONE HCL PF), Dose: 0.5 mg IVP over 2 minute(s), Site: #1 right wrist. Medication Ordered: Dilaudid IV 0.5 mg (NOW). Given 15:38 06/23/2016 Roberto Alatorre R.N. Medication Administered: ZOFRAN [IVP] (ONDANSETRON HCL), Dose: 4 mg IVP over 2 minute(s), Site: #1 right wrist. Medication Ordered: Zofran IV 4 mg (NOW). Start 17:35 06/23/2016 Roberto Alatorre R.N. Medication Administered: IV NS (SALINE), Dose: IV Fluids over 2 hour(s), Dispensed: 1000 mL bag, Site: #1 right wrist. Medication Ordered: IV NS : initial bolus none -, then 500 mL/hr for 2h (NOW); Urgent. Given 18:26 06/23/2016 Roberto Alatorre R.N. Medication Administered: ERTAPENEM [IVP], Dose: 1 gm IVP over 30 minute(s), Site: #1 right wrist. Medication Ordered: Ertapenem IV 1 gm (NOW).
--- NOTE | 2016-06-26 19:42 | ED DISCHARGE INSTRUCTIONS ---
Patient: EMIGDIO CLARK VICENTA General Instructions [facility] VisitID: [id number] [address] [place] [address] 46y, F Registration Date/Time: 06/23/2016 ACUTE ABDOMINAL PAIN ACUTE APPENDICITIS WITH ABSCESS ANEMIA. (Electronically signed by Hector Roberson MD 06/23/2016 23:39)
--- NOTE | 2016-06-26 19:42 | ED DISCHARGE INSTRUCTIONS ---
Patient: EMIGDIO CLARK VICENTA General Instructions [facility] VisitID: [id number] [address] [place] [address] 46y, F Registration Date/Time: 06/23/2016 ACUTE ABDOMINAL PAIN ACUTE APPENDICITIS WITH ABSCESS ANEMIA. (Electronically signed by Hector Roberson MD 06/23/2016 23:39)
--- NOTE | 2016-06-26 19:42 | ED MAR SUMMARY ---
..... Medication Administration Record [facility] [address] [place] [address] Patient: VICENTA LEWIS Visit ID: [id number] 46y, F Weight: 99.5 kg Height/Length: 65 in BMI: 36.5 ALLERGIES: None Start 15:27 06/23/2016 Roberto Alatorre R.N., Stop 17:19 06/23/2016 Roberto Alatorre R.N. Medication Administered: IV NS (SALINE), Dose: IV Fluids over 2 hour(s), Rate: 1000 mL/hr, Dispensed: 1000 mL bag, Site: #1 right wrist. Medication Ordered: IV NS : initial bolus none -, then 500 mL/hr for 2h (NOW); Urgent. Given 15:38 06/23/2016 Roberto Alatorre R.N. Medication Administered: DILAUDID [IVP] (HYDROMORPHONE HCL PF), Dose: 0.5 mg IVP over 2 minute(s), Site: #1 right wrist. Medication Ordered: Dilaudid IV 0.5 mg (NOW). Given 15:38 06/23/2016 Roberto Alatorre R.N. Medication Administered: ZOFRAN [IVP] (ONDANSETRON HCL), Dose: 4 mg IVP over 2 minute(s), Site: #1 right wrist. Medication Ordered: Zofran IV 4 mg (NOW). Start 17:35 06/23/2016 Roberto Alatorre R.N. Medication Administered: IV NS (SALINE), Dose: IV Fluids over 2 hour(s), Dispensed: 1000 mL bag, Site: #1 right wrist. Medication Ordered: IV NS : initial bolus none -, then 500 mL/hr for 2h (NOW); Urgent. Given 18:26 06/23/2016 Roberto Alatorre R.N. Medication Administered: ERTAPENEM [IVP], Dose: 1 gm IVP over 30 minute(s), Site: #1 right wrist. Medication Ordered: Ertapenem IV 1 gm (NOW).
--- NOTE | 2016-06-26 19:42 | ED MED RECONCILIATION SUMMARY ---
Patient: VICENTA LEWIS Medication Reconciliation Report [facility] VisitID: [id number] [address] [place] [address] 46y, F Registration Date/Time: 06/23/2016 Weight: 99.5 kg Height/Length: 65 in. BMI: 36.5 ALLERGIES: None The patient's Home Medications are listed below: NONE. The source(s) of the original Home Medication information: patient The following Medications were given to the patient in the Emergency Department: IV NS IV Fluids bolus 0, then 1000 mL/hr, administered: 06/23/2016 3:27:00 PM Dilaudid [IVP] IVP 0.5 mg, administered: 06/23/2016 3:38:00 PM Zofran [IVP] IVP 4 mg, administered: 06/23/2016 3:38:00 PM IV NS IV Fluids bolus 0, administered: 06/23/2016 5:35:00 PM Ertapenem [IVP] IVP 1 gm, administered: 06/23/2016 6:26:00 PM The following Medications were prescribed to the patient: None.
== END 2016-06-24 08:55 | disposition home or self-care (01) | DRG 343 ==
LOC: ED SRH 13:22 → TRANS SRH 17:38 → ACUTE2 SRH 18:12 → ACUTE3 SRH 21:15 → TRANS SRH 21:15 → ACUTE2 SRH 21:15 → ACUTE3 SRH 06-24 08:55
PROVIDERS: ADMIT Specialist
PROC: 0DTJ4ZZ Resection of Appendix, Percutaneous Endoscopic Approach (ICD-10-PCS; principal; 2016-06-23 18:45)
DX: R10.11 Right upper quadrant pain (principal); D64.9 Anemia, unspecified
CPT/HCPCS: 50002; 60001; 70002; 80102; 80212; 80248; 80298; 80852; 82669; 82794; 82897; 83338; 83343; 83587; 83920; 83982; 84038; 85420; 85447; 90001; 90004; 90074; 90100; 90155; 91004; 91162; 91163; 91544; 92235; 93070; 95059